=== PATIENT | female | born 1990 | race Two or more races ===

== ENCOUNTER 2024-07-09 09:15 | Day surgery (SDC) | payer BC, SELFPAY ==
[2024-07-08 10:33] VITALS: BMI 49.2
[2024-07-08 12:06] LABS: Basophils % (Auto) 0 % (0-2.5); Eosinophils # (Auto) 0.4 Thou/mm3 (0.0-0.5); Eosinophils % (Auto) 4 % (0-10); Hematocrit 34.6 % (36.0-46.0); Hemoglobin 11.1 g/dL (12.0-16.0); Immature Granulocytes % (Auto) 0 % (0-0); Immature Granulocytes Auto 0.03 Thou/mm3 (0.00-0.00); Lymphocytes # (Auto) 2.9 Thou/mm3 (1.0-4.8); Lymphocytes % (Auto) 32 % (10-50); Mean Corpuscular HGB Conc 32.1 g/dl (31.0-37.0); Mean Corpuscular Hemoglobin 26.9 pg (25.0-35.0); Mean Corpuscular Volume 84 fL (80-100); Monocytes # (Auto) 0.7 Thou/mm3 (0.0-0.8); Monocytes % (Auto) 7 % (0-12); Neutrophils % (Auto) 56 % (37-80); Nucleated Red Blood Cell % 0 /100 WBC (0); Platelet Count 280 Thou/mm3 (140-440); RDW Standard Deviation 45.1 fL (36.4-46.3); Red Blood Count 4.12 Miln/mm3 (4.00-5.20); White Blood Count 8.9 Thou/mm3 (3.6-11.0)
[2024-07-08 12:10] LABS: HCG,Qualitative Serum Negative
[2024-07-08 12:16] LABS: INR 0.9 (0.9-1.3); Partial Thromboplastin Time 25.1 Seconds (22.0-36.0); Prothrombin Time 10.4 Seconds (9.0-12.2)
[2024-07-08 12:17] LABS: Alanine Aminotransferase 23 U/L (10-49); Albumin/Globulin Ratio 1.1 (1.2-2.2); Alkaline Phosphatase 54 U/L (46-116); Anion Gap 11 (7-16); Aspartate Amino Transferase 20 U/L (0-34); BUN/Creatinine Ratio 10 Ratio (12-20); Bilirubin,Total 0.4 mg/dL (0.3-1.2); Blood Urea Nitrogen 7 mg/dL (9-23); Calcium 8.8 mg/dL (8.3-10.6); Calcium (Corrected) 8.8 mg/dL (8.5-10.1); Carbon Dioxide 26.4 mMol/L (20.0-31.0); Chloride 105 mMol/L (98-107); Creatinine (Component) 0.7 mg/dL (0.6-1.3); Estimated Creatinine Clearance 169.6 mL/min (>60); Globulin 3.7 gm/dL (2.3-3.5); Glucose 89 mg/dL (74-106); Osmolality,Calculated 280 (275-295); Potassium 4.1 mMol/L (3.4-5.1); Sodium 142 mMol/L (136-145); Total Protein 7.7 gm/dL (5.7-8.2); eGFR > 60 See Note
[2024-07-09] VITALS (8 sets, daily range): BP systolic 142–162; BP diastolic 77–88; PULSE 64–84; RESP 12–22; TEMP 36.6–36.9; O2SAT 92–100; BMI 50.5
[2024-07-09] MEDS: RINGERS LACTATED 1000 ML 1,000 ML 20 ML IV (10:17)
--- NOTE | 2024-07-09 12:57 | PD.SUROPNT ---
Date of Procedure 07/09/24 Pre Op Diagnosis Bilateral axillary hidradenitis suppurativa Post Op Diagnosis Same Procedure Wide excision of the axillary hidradenitis suppurativa Findings Patient is found to have large area that required elliptical incision measuring about 10 cm on both sides. She also had another small area measuring 4 cm in diameter on both sides which was excised the same way Procedure Description After the patient was brought to the operating room LMA anesthesia was given. Then she was kept with the arms put on on both. Her head was elevated to 30 degrees. Axilla was washed with Betadine solution and draped in a sterile manner. Timeout was performed. Patient received 2 g of Ancef because of the infection. I started the left side first. Then I injected half percent Marcaine with epinephrine over the area I made an elliptical incision. The entire skin containing chronic abscess was excised. These were multiple abscesses showing considerable scarring tissue due to previous infection as well as present infection. I reached the subcutaneous tissue and to make sure that all the infected tissues were removed. I closed the subcutaneous tissue with 3-0 chromic interrupted sutures. Skin was closed with interrupted 4-0 nylon stitches. Then another area next to this major 1 was excised with an elliptical incision and closed with 4-0 nylon stitches. Attention was then turned onto the right side where the patient had similar infected area measuring about 10 cm in length and 2 cm in width. This was also dealt with the same way as the left side. In addition to that another area measuring 4 cm in length also was found to have 2 chronic abscesses which was excised separately and closed with interrupted 4-0 nylon stitches. Then the dressing was applied with Adaptic fluff and tape. Patient tolerated. Anesthesia other Pathology / specimen Other (Excised hidradenitis suppurativa on both sides of axilla) Estimated Blood Loss 40 Surgeon Feli Ptael MD Surgical Staff Operation Date: 07/09/24 11:45 Case Staff Anesthesiologist: Suhail Phillips RN First Assistant: Tara Martinez
--- NOTE | 2024-07-09 13:13 | SUR.PHASEI ---
1245: Pt received in [facility] via gurney. Report from Willa GROVES and Dr. Ch. Pt obtunded. Is arousable with eye opening then drifts back to sleep. Resp even, unlabored. VS stable and within pre-op baseline. Dressings to bilateral axilla dry, clean, intact. No complaints of pain. 1200: Pt more awake. Resp even, unlabored. VS stable. Dressings unchanged. Denies pain.
--- NOTE | 2024-07-09 13:37 | SUR.PHASEII ---
1325: Pt more awake, alert. VS stable. Denies pain. Dressing bilateral axilla remain dry, clean, intact. Pt sitting up tolerating po fluids with no difficulty swallowing and no n/v.
--- NOTE | 2024-07-09 14:44 | SUR.PHASEII ---
1353: Pt fully awake, oriented x3. Pt dressed. Assisted to transport chair. Ambulation steady. Pt and sister stated understanding of discharge instructions. Pt also instructed to supervisor opening and picking her prescription at [facility]. Pt discharged from [facility] in stable condition.
== END 2024-07-09 13:53 | disposition home or self-care (01) ==
PROVIDERS: Anesthesiology; Referring Provider Surgery; Visit Provider Surgery
PROC: (CPT 11450; principal; 2024-07-09 11:30)
DX: L73.2 Hidradenitis suppurativa (principal)
CPT/HCPCS: 11450; 36415; 80053; 81025; 84703; 85025; 85610; 85730; A4217; A4649; J0131; J1100; J1885; J2250; J2405; J2704; J3010; J7120